=== PATIENT | male | born 1960 | race African-American/Black ===

== ENCOUNTER 2023-02-12 20:20 | Emergency (ER) | payer OTHER ==
[2023-02-12] MEDS ORDERED: SODIUM CHLORIDE 1,000 ML IV SCH (20:30)
[2023-02-12 20:32] VITALS: TEMP 96.8; BMI 48.4
[2023-02-12 21:00] LABS: EOS % 2.2 % (0-4.5)
[2023-02-12] MEDS ORDERED: HUM PROTHROMBIN CPLX(PCC)4FACT 1,000 UNIT/40 ML VIAL IV ONE (21:02)
[2023-02-12 21:07] LABS: BASO % 1.7 % (0-2.0); HEMATOCRIT 44.3 % (35.4-49); HEMOGLOBIN 15.6 GM/dL (11.7-16.9); INR 1.15 (0.83-1.09); LYMPH % 32.4 % (8-40); MCH 28.1 pg (25.7-33.7); MCHC 35.1 g/dl (32.0-35.9); MEAN CELL VOLUME 79.9 fl (80-96); MEAN PLT VOLUME 8.7 fl (7.5-11.1); MONO % 9.7 % (3.8-10.2); PLATELET COUNT 261 10^3/uL (134-434); PROTHROMBIN TIME (PATIENT) 13.3 SEC (9.7-13.0); RBC 5.55 M/mm3 (4.00-5.60); RDW 14.8 % (11.9-15.9)
[2023-02-12 21:09] LABS: ACTIVATED PTT 30.8 SECONDS (25.2-36.5)
[2023-02-12] MEDS ORDERED: FACTOR XA,INACTIVATED - BOLUS 400 MG/40 ML VIAL IVPB ONE (21:09)
[2023-02-12 21:10] VITALS: RESP 22
[2023-02-12 21:20] LABS: POTASSIUM 3.1 mmol/L (3.5-5.1)
[2023-02-12 21:22] LABS: ALBUMIN 3.4 g/dl (3.4-5.0); CALCIUM 8.4 mg/dL (8.5-10.1)
[2023-02-12 21:26] LABS: CREATININE 1.5 mg/dL (0.55-1.3)
[2023-02-12] MEDS ORDERED: SODIUM CHLORIDE 50 ML IVPB ONE ×2 (21:26→23:11)
[2023-02-12 21:27] LABS: TOT PROT 7.2 g/dl (6.4-8.2)
[2023-02-12 21:28] LABS: BILIRUBIN,TOTAL 0.5 mg/dL (0.2-1)
[2023-02-12] MEDS ORDERED: FACTOR XA,INACTIVATED-ZHZO 480 MG/48 ML VIAL IVPB ONE (21:36)
[2023-02-12 22:06] LABS: ANISOCYTOSIS 2+; MACROCYTOSIS 0
[2023-02-12 22:29] VITALS: BP 148/96; PULSE 66
== END 2023-02-12 22:47 | disposition short-term general hospital (02) ==
LOC: JER 20:20
PROC: 3E033GC Introduction of Other Therapeutic Substance into Peripheral Vein, Percutaneous Approach (ICD-10-PCS; principal; 2023-02-12)
PROC: 3E033GC Introduction of Other Therapeutic Substance into Peripheral Vein, Percutaneous Approach (ICD-10-PCS; 2023-02-12)
PROC: 3E033GC Introduction of Other Therapeutic Substance into Peripheral Vein, Percutaneous Approach (ICD-10-PCS; 2023-02-12)
DX: R29.810 Facial weakness (principal); R47.81 Slurred speech; R20.0 Anesthesia of skin; R53.1 Weakness; I63.9 Cerebral infarction, unspecified
CPT/HCPCS: 36415; 70450-TC; 80053; 80061; 82550; 82553; 83036; 84484; 85025; 85610; 85730; 86850; 86900; 86901; 93005; 93010; 99285-25; J7169